=== PATIENT | male | born 1955 | race African-American/Black ===

== ENCOUNTER 2020-10-10 11:02 | Emergency (ER) | payer MEDICARE, MEDICAID ==
[~2020-10-10] VITALS: Ht 165.1 cm; Wt 75.0 kg
[2020-10-10] MEDS ORDERED: ACETAMINOPHEN 325MG TABLET PO ONE (11:45)
[2020-10-10] MEDS ORDERED: IBUPROFEN 400MG TABLET PO ONE (11:45)
[2020-10-10] MEDS ORDERED: CEFP200T13 MT (12:13)
[2020-10-10] MEDS ORDERED: SULF-292 MT (12:13)
[2020-10-10] MEDS ORDERED: TETRACAINE 0.5% OPHTH DROPS 4ML LEFTEYE ONE (12:15)
[2020-10-10 12:24] VITALS: BP 157/98
== END 2020-10-10 13:36 | disposition home or self-care (01) ==
LOC: ER 11:19
DX: L03.213 Periorbital cellulitis (principal); F17.200 Nicotine dependence, unspecified, uncomplicated
CPT/HCPCS: 99283

== ENCOUNTER 2022-08-14 14:20 | Emergency (ER) | payer MEDICAID, MEDICARE, OTHER ==
[~2022-08-14] VITALS: Ht 177.8 cm; Wt 91.0 kg
[~2022-08-14 14:20] MED LIST: CEFP200T13 MT; SULF-292 MT
[2022-08-14 14:39] VITALS: BP 143/97
== END 2022-08-14 15:04 ==
LOC: ER 14:20
DX: Z00.00 Encounter for general adult medical examination without abnormal findings (principal); I10 Essential (primary) hypertension; F12.10 Cannabis abuse, uncomplicated
CPT/HCPCS: 99283